=== PATIENT | male | born 1975 | race Caucasian/White ===

== ENCOUNTER 2016-11-29 23:26 | Emergency (ER) | payer SELFPAY ==
--- NOTE | 2016-11-29 23:33 | ED Physician Documentation ---
General Adult - HISTORIAN Historian: patient - HPI Chief Complaint: Male Genitourinary Problems Onset: other (years ago, pain has not changed much over the last 10 years) Timing: worse (???) Modifying Factors: none Quality: achy pain Further Comments: yes (Patient states that he has been told that he has two hydrocele one on top of the other in 2000. Was told that he needs ot have surgery or be on pain medication, He does not want to do either. Was afraid that if he had surgery the testicle would be removed. He comes in for evaluation tonight.) - ROS CONST: no problems. denies: fever, chills - PAST HX Past History: none Surgeries/Procedures: none Allergies/Adverse Reactions: Allergies Allergy/AdvReac Type Severity Reaction Status Date / Time No Known Allergies Allergy Verified 11/29/16 23:43 Home Medications: Ambulatory Orders Medication Instructions Recorded NK [NK] 11/29/16 - SOCIAL HX Smoking History: non-smoker Alcohol Use: none - FAMILY HX Family History: No - REVIEWED ASSESSMENTS Nursing Assessment Reviewed: Yes Vitals Reviewed: Yes General Adult Physical Exam - PHYSICAL EXAM GENERAL APPEARANCE: mild distress RESPIRATORY: no resp distress, chest non-tender CVS: reg rate & rhythm, heart sounds normal, equal pulses ABDOMEN: soft, no organomegaly, normal bowel sounds, other (patient was pulling away even before touching him for exam. Took his hand and push me away when trying to palpte testicle. No scrotal swelling could be appreciated, testicle was not swollen, no hernia palpated but exam was incomplete. Patient advised of the need to do more thorugh exam but would not let me. ) SKIN: warm/dry NEURO: oriented X3, CN's nml as tested, mood/affect nml, cognition normal Discharge Clincal Impression: Testicular/scrotal pain Additional Instructions: Due to you not letting examine you well, exam is limited. Use good scotal support, try using an ice pack to the groin area. Take some Tylenol of Ibuprofen as needed for pain. To follow-up with your primary care provider and / or surgeon for further definitive treatment. If your pain gets worse to return to the ED. Home Medications: Ambulatory Orders NK [NK] 11/29/16 Condition: Stable Disposition: 02 XFER [facility]M HOSP Decision to Admit: NO Date of Decison to Admit: 11/30/16 Decision Time: 00:07
[2016-11-29] MEDS ORDERED: IBUPROFEN 200 MG TABLET PO ONE (23:39)
[2016-11-30] MEDS ORDERED: ONDANSETRON HCL 4 MG TAB.RAPDIS PO ONE (00:19)
[2016-11-30 00:31] VITALS: BP 142/66
[2016-11-30 05:36] LABS: APPEARANCE,URINE CLEAR (CLEAR); COLOR,URINE YELLOW (YELLOW); OCCULT BLOOD,URINE NEGATIVE (NEGATIVE); PH URINE 5.5 (5.0 - 8.0); UROBILINOGEN URINE 0.2 Eu (0.2-1.0)
== END 2016-11-30 00:16 | disposition short-term general hospital (02) ==
LOC: ED 23:26
DX: N50.819 Testicular pain, unspecified (principal)
CPT/HCPCS: 81002; 99283